=== PATIENT | female | born 1975 | race Caucasian/White ===

== ENCOUNTER 2020-07-28 22:00 | Outpatient (CLI) | payer OTHER | END 2020-07-28 23:59 | disposition home or self-care (01) | LOC: D.MAMMO 22:00 | PROVIDERS: ATTEND Family Medicine | DX: Z12.31 Encounter for screening mammogram for malignant neoplasm of breast (principal) ==

== ENCOUNTER 2020-08-31 05:50 | Day surgery (SDC) | payer OTHER ==
[2020-08-28 16:15] LABS: BASOPHILS 0.5 % (0-2); EOSINOPHILS 2.3 % (0-7); HEMATOCRIT 32.7 % (36.0-48.0); HEMOGLOBIN 10.4 g/dL (12-16); LYMPHOCYTES 32.7 % (15-50); MCH 23.7 pg (26.0-34.0); MCHC 31.6 g/dL (31.0-37.0); MEAN PLATELET VOLUME 7.9 fL (7.4-10.4); MONOCYTES 5.6 % (2-11); NEUTROPHILS 58.9 % (40-80); PLATELET COUNT 320 10x3/uL (130-400); RBC 4.37 10x6/uL (4.00-5.40); RDW 19.7 % (11.5-14.5); WBC 8.3 10x3/uL (4.8-10.8)
[~2020-08-31] VITALS: Ht 154.9 cm; Wt 86.2 kg
--- NOTE | ~2020-08-31 | OP ---
PATIENT NAME: OSMAN LUONG MEDICAL RECORD: [id number] :79 LOCATION:D.OPS ADMISSION DATE: SURGEON: LISA DEAN DO DATE OF OPERATION: 08/31/2020 PREOPERATIVE DIAGNOSIS: . POSTOPERATIVE DIAGNOSIS: . PRIMARY SURGEON: Lisa Dean DO ANESTHESIA: LMA. PROCEDURE: Operative hysteroscopy, D&C. FINDINGS: Uterus sounded to 7 cm. Cervix dilated. Bilateral ostia within normal limits. Moderate amount of endometrial tissue. FLUID DEFICIT: 140 cc. SPECIMEN: Endometrial curetting. ESTIMATED BLOOD LOSS: Less than 50 cc. FLUIDS: Per anesthesia. URINE OUTPUT: 100 cc clear yellow urine via red rubber catheter. COMPLICATIONS: None. The patient was counseled on risk of surgery including bleeding, pain, infection, damage to surrounding structures, uterine perforation, VTE reoperation. The patient expressed understanding. Consent signed in the office. All questions answered preoperatively. DESCRIPTION OF PROCEDURE: The patient was then taken to the operating room where general anesthesia was administered via LMA and found to be adequate. She was prepped and draped in normal sterile fashion in the dorsal lithotomy position. Speculum placed. Anterior lip of the cervix was grasped with tenaculum. Cervix dilated to accommodate Aveta hysteroscope. Above findings noted. Resectoscope tool placed within hysteroscope and resection of polypoid tissue commenced. Hemostasis was adequate and moderate amount of tissue received. Cervix slightly dilated further to accommodate a small sharp curette. Curette completed in a clockwise fashion until gritty feeling was noted. Specimen sent to pathology. Hysteroscope and curette removed. Hemostasis was adequate. Tenaculum removed. Silver nitrate applied. Speculum removed. The patient tolerated the procedure well, was awakened and taken to recovery room in stable condition. TRANSINT:[id number] Voice Confirmation ID: [id number] DOCUMENT ID: [id number] OPERATIVE REPORT [id number] OSMAN LUONG LISA DEAN DO CC: [id number] DICTATION DATE: 09/04/20857 [employer] INTERN: 09/04/20 1200 [facility] 08/31/20 [place] [address]
[2020-08-31 06:10] VITALS: BP 110/71; Ht 154.9 cm; Wt 86.2 kg
[2020-08-31 06:21] LABS: HCG URINE NEGATIVE (NEGATIVE)
--- NOTE | 2020-08-31 11:55 | NUR ---
DC TEACHING TO PT AND , VERBALIZED UNDERSTANDING. 1220 PIV DC'D BY WADE, CATHETER INTACT, PT DRESSING 1235 PT DC'D VIA WC TO POV WITH ALL BELONGINGS AND DC PACKET. DRIVING.
--- NOTE | 2020-08-31 17:08 | NUR ---
THIS NURSE CALLED PT TO NOTIFY THAT PRESCRIPTION WAS LEFT HERE. THIS NURSE OFFERED TO MEET PTS AT [facility] WITH THE SCRIPT. PT STATES THAT SHE DOESN'T THINK SHE WILL NEED IT, BUT IF SHE DOES, SHE WILL COME PICK IT UP TOMORROW. NOTIFIED PT THAT SCRIPT WILL BE AT THE OUTPT DESK IN [place]. PATIENT VERBALIZED UNDERSTANDING.
== END 2020-08-31 12:35 | disposition home or self-care (01) ==
LOC: D.OPS 05:50
PROVIDERS: ATTEND Obstetrics & Gynecology
DX: N93.9 Abnormal uterine and vaginal bleeding, unspecified (principal); N92.6 Irregular menstruation, unspecified